=== PATIENT | male | born 1985 | race Caucasian/White ===

== ENCOUNTER 2016-11-09 20:56 | Emergency (ER) | payer OTHER ==
[2016-11-09 21:12] VITALS: BP 149/76; PULSE 68; RESP 19; TEMP 98.2; O2SAT 97; BMI 29.2
--- NOTE | 2016-11-09 21:21 | ED PDOC ---
Arrival/HPI - General Chief Complaint: Finger,Hand,&Wrist Time Seen by Provider: 11/09/16 21:15 Historian: Patient - History of Present Illness Time/Duration: Other (1 day) Symptom Onset: Gradual Symptom Course: Unchanged Quality: Aching Severity Level: Mild Associated Symptoms (Text): 11/09/16 21:19 Patient reports he was pushing the baby stroller yesterday and injured his dominant right wrist. He has pain with range of motion. Past Medical History - Infectious Disease Hx of Infectious Diseases: None - Psychiatric Hx Substance Use: No - Anesthesia Hx Anesthesia: No Family/Social History - Physician Review Nursing Documentation Reviewed: Yes Family/Social History: Unknown Family HX Smoking Status: Never Smoked Hx Alcohol Use: Yes Frequency of alcohol use: Socially Hx Substance Use: No Allergies/Home Meds Allergies/Adverse Reactions: Allergies No Known Allergies Allergy (Verified 11/09/16 21:12) Review of Systems - Physician Review All systems were reviewed & negative as marked: Yes Physical Exam Vital Signs Temp Pulse Resp BP Pulse Ox 11/09/16 21:12 98.2 F 68 19 149/76 97 Temperature: Afebrile Blood Pressure: Normal Pulse: Regular Respiratory Rate: Normal Appearance: Positive for: Well-Appearing, Non-Toxic, Comfortable Pain Distress: None Mental Status: Positive for: Alert and Oriented X 3 - Systems Exam Upper Extremity: Present: Normal Inspection, Normal ROM, NORMAL PULSES, Tenderness, Neurovascularly Intact, Other (mild dorsal right dominant wrist tenderness with no swelling or skin changes). No: Cyanosis, Edema, Swelling, Erythema, Deformity Skin: Present: Warm, Dry, Normal Color. No: Rashes Medical Decision Making - RAD Interpretation Radiology Orders: 11/09/16 21:19 WRIST, RIGHT 3 VIEWS [RAD] Stat Wrist 3 view shows no fracture or dislocation Patient Account Liaison: ED Physician Disposition/Present on Arrival - Present on Arrival Any Indicators Present on Arrival: No History of DVT/PE: No History of Uncontrolled Diabetes: No Urinary Catheter: No History of Decub. Ulcer: No History Surgical Site Infection Following: None - Disposition Have Diagnosis and Disposition been Completed?: Yes Diagnosis: Right wrist sprain Disposition: HOME/ ROUTINE Disposition Time: 21:45 Patient Plan: Discharge Condition: GOOD Discharge Instructions (ExitCare): Wrist Sprain (ED) Additional Instructions: Rest ice and elevation. Follow-up with PMD. Follow-up in the ER as needed. Tylenol or Advil as directed on bottle as needed.
--- NOTE | 2016-11-10 09:49 | RAD ---
PROCEDURE: Right Wrist Radiographs. HISTORY: trauma COMPARISON: None. FINDINGS: BONES: Normal. No fracture. JOINTS: Normal. No dislocation. SOFT TISSUES: Normal. OTHER FINDINGS: None. IMPRESSION: Normal right wrist radiographs.
== END 2016-11-09 22:05 | disposition home or self-care (01) ==
LOC: ED 20:56
DX: S63.501A Unspecified sprain of right wrist, initial encounter (principal); X50.9XXA Other and unspecified overexertion or strenuous movements or postures, initial encounter